=== PATIENT | female | born 1970 | race Caucasian/White ===

== ENCOUNTER → 2017-07-23 | Outpatient (CLI) | payer OTHER ==
--- NOTE | 2017-07-23 10:23 | KCIC ---
DATE: 07/23/2017 EXAM: MAMMO ADRI DIAG BILAT Bilateral digital screening mammography to include digital breast tomosynthesis (3D mammography) HISTORY: 6 month follow-up of nodule in the right breast. COMPARISON: 10/10/2015 and 10/15/2015 This study was interpreted with the benefit of Computerized Aided Detection (CAD). The breast parenchyma shows scattered fibroglandular densities. Breast parenchyma level B. FINDINGS: Digital MLO and CC mammograms of both breasts were obtained. Additional CC digital mammograms of both breasts were obtained. Additionally digital breast tomosynthesis (3D mammography) images of both breasts in the MLO and CC projections were performed. Comparison studies are dated 10/10/2015 and 10/15/2015. The breast parenchyma is composed of scattered fibroglandular densities which can obscure a lesion on mammography (breast density code B). No spiculated mass is seen. No malignant appearing calcification or area of architectural distortion is noted. The small nodular density within the right breast is unchanged from the previous examination. It has a benign appearance. Digital breast tomosynthesis images demonstrate no spiculated mass or malignant appearing calcification. Since the previous examination there has been no significant interval change. IMPRESSION: Stable mammographic appearance of the small benign-appearing nodule within the right breast. I would recharacterize the patient's mammograms as a BI-RADS Category 2 benign findings with a recommendation for routine yearly screening mammography for follow-up. BI-RADS CATEGORY: 2 BENIGN FINDING(S) RECOMMENDED FOLLOW-UP: 12M 12 MONTH FOLLOW-UP PQRS compliance statement: Patient information was entered into a reminder system with a target due date 07/23/2018 for the next mammogram. Mammography is a sensitive method for finding small breast cancers, but it does not detect them all and is not a substitute for careful clinical examination. A negative mammogram does not negate a clinically suspicious finding and should not result in delay in biopsying a clinically suspicious abnormality. "Our facility is accredited by the [employer] Mammography [employer]."
== END | disposition home or self-care (01) ==
LOC: KCIC MAMMO 08:13
PROVIDERS: ATTEND Family Medicine
DX: N63.10 Unspecified lump in the right breast, unspecified quadrant (principal)
CPT/HCPCS: G0204; G0279; 77062; 77066

== ENCOUNTER → 2019-02-21 | Outpatient (CLI) | payer OTHER ==
--- NOTE | 2019-02-21 13:37 | KCIC ---
Bilateral digital screening mammograms with 3-D tomosynthesis: Reason for examination: Routine screening. Comparison is made to previous studies dated 07/23/2017 and 10/10/2015. Bilateral mammograms in CC and oblique projections were obtained with 2-D imaging and 3-D tomosynthesis imaging on a [employer] Inspiration unit and reviewed on the workstation. Interpretation was made with the benefit of CAD. The skin and nipples show no abnormalities. No abnormal axillary lymph nodes are seen. The breast parenchyma is predominantly fatty. (Breast density: Category A.) There are is small parenchymal densities seen in the left breast which are stable. There are no new dominant masses, suspicious calcifications or architectural distortion. Impression: No evidence of malignancy. Recommend routine screening. BI-RAD Category 2: Benign. "Our facility is accredited by the [employer] Mammography Program." This patient's information has been entered into a reminder system for the patient to be notified with the results of her examination and a target date for the next mammogram. Electronically signed by: Krystin Espinoza MD (02/21/2019 1:35 PM) [id number]
== END | disposition home or self-care (01) ==
LOC: KCIC MAMMO 11:50
PROVIDERS: ATTEND Family Medicine
DX: Z12.31 Encounter for screening mammogram for malignant neoplasm of breast (principal); N64.89 Other specified disorders of breast
CPT/HCPCS: 77063; 77067

== ENCOUNTER → 2021-03-13 | Outpatient (CLI) | payer OTHER ==
--- NOTE | 2021-03-13 16:43 | CARD ---
MR#: [id number] Date of Study: 03/13/2021 Ordering Physician: SHOLA LANDRUM, Referring Physician: SHOLA LANDRUM, Tech: Dipti Garcia [facility] APPROVED REPORT EXAM: Two-dimensional and M-mode echocardiogram with Doppler and color Doppler. Other Information Quality : GoodHR: 70bpm INDICATION Peripheral Edema RISK FACTORS Asthma 2D DIMENSIONS RVDd3.3 (2.9-3.5cm)Left Atrium(2D)3.8 (1.6-4.0cm) IVSd0.7 (0.7-1.1cm)Aortic Root(2D)3.0 (2.0-3.7cm) LVDd5.2 (3.9-5.9cm)LVOT Diameter2.0 (1.8-2.4cm) PWd1.0 (0.7-1.1cm)LVDs3.0 (2.5-4.0cm) FS (%) 42.8 %SV94.4 ml LVEF(%)63.5 (>50%) Aortic Valve AoV Peak Yan.190.0cm/sAoV VTI43.0cm AO Peak GR.14.4mmHgLVOT Peak Yan.98.9cm/s LVOT VTI 25.54cmAO Mean GR.8mmHg KAILA (VMAX)1.17pt3SGT (VTI)1.80cm2 AI P 1/2 Rdex107bq Mitral Valve MV E Hvzviuqx55.5cm/sMV DECEL XIDP072ds MV A Olhblkbd90.7cm/sMV WOV24sb E/A Ratio1.2MVA (PHT)2.25cm2 TDI E/Lateral E'4.1E/Medial E'6.4 Pulmonary Valve PV Peak Nxqredpr087.0cm/sPV Peak Grad.6mmHg Tricuspid Valve TR P. [place]ex[place]650qf/sTR Peak Gr.22mmHg Pulmonary Vein S1 Dpxbzlmj92.1cm/sD2 Idukbfqy54.6cm/s PVa [id number] LEFT VENTRICLE The left ventricle is normal size. There is normal left ventricular wall thickness. The left ventricu lar systolic function is normal. The Ejection Fraction is 55%. There is normal LV segmental wall va on. Transmitral Doppler flow pattern is Grade II-pseudonormal filling dynamics. RIGHT VENTRICLE The right ventricle is borderline dilated. There is normal right ventricular wall thickness. The righ t ventricular systolic function is normal. ATRIA The left atrium size is normal. The right atrium size is normal. The interatrial septum is intact wit h no evidence for an atrial septal defect or patent foramen ovale as noted on 2-D or Doppler imaging. AORTIC VALVE The aortic valve is mildly thickened but opens well. Doppler and Color Flow revealed mild aortic regu rgitation. There is no significant aortic valvular stenosis. Calculated aortic valve area is 1.80 cm2 with maximum pressure gradient of 17 mmHg and mean pressure gradient of 10 mmHg. MITRAL VALVE The mitral valve is normal in structure and function. There is no evidence of mitral valve prolapse. There is no mitral valve stenosis. Doppler and Color-flow revealed trace mitral regurgitation. TRICUSPID VALVE The tricuspid valve is normal in structure and function. Doppler and Color Flow revealed trace tricus pid regurgitation with an estimated PAP of 30 mmHg. There is no tricuspid valve stenosis. PULMONIC VALVE The pulmonic valve is not well visualized. Doppler and Color Flow revealed trace to mild pulmonic geoff vular regurgitation. GREAT VESSELS The aortic root is normal in size. The IVC is normal in size and collapses >50% with inspiration. PERICARDIAL EFFUSION There is no evidence of significant pericardial effusion. Critical Notification Critical Value: No <Conclusion> The left ventricular systolic function is normal. The Ejection Fraction is 55%. There is normal LV segmental wall motion. Transmitral Doppler flow pattern is Grade II-pseudonormal filling dynamics. Mild aortic regurgitation. Trace mitral regurgitation. Trace tricuspid regurgitation with an estimated PAP of 30 mmHg. There is no evidence of significant pericardial effusion. Signed by : Shola Landrum, Electronically Approved : 03/13/2021 16:42:55
--- NOTE | 2021-03-13 17:13 | RAD ---
MR#: [id number] Date of Study: 03/13/2021 Ordering Physician: SHOLA LEMUS, Referring Physician: SHOLA LEMUS, Tech: Pastor Marrero MBA, RDMS, RVT, RDCS, RTR APPROVED REPORT Patient Location : OUT-PATIENT Indications Lower Extremity Edema : Bilateral Greater Saphenous Veins (GSV) Significant venous relux noted in the LEFT GSV at the following levels : Superficial Femoral Junction , Proximal Thigh Lesser Saphenous Veins (LSV) Significant venous reflux is noted in the Left LSV. Perforators Thigh Perforators Calf Perforators Left: cm up from medial heel 6,30cm back from the anterior border of tibia 3 diameter 2.5/2.6mm. Findings Grayscale images of the bilateral saphenofemoral junctions are grossly unremarkable. The right great saphenous vein measures 4.7 mm and does not show any evidence of reflux. The right l celio saphenous vein did not show any evidence of reflux The left great saphenous vein measures approximately 4.8 mm and has a maximum reflux time of 3 second s. The left lesser saphenous vein measures 3 mm and has a maximum reflux time of 2 seconds. 2 perforators are noted on the left side had approximately 6 cm up in 30 cm up and 3 cm back from the level of the ankle with approximate measurements of 2.5 mm in diameter. Critical Notification Critical Value: No <Conclusion> 1. Positive for reflux in the left greater and lesser saphenous veins Signed by : Andrea Zapien, Electronically Approved : 03/13/2021 17:13:25
== END ==
LOC: US 12:54
PROVIDERS: ATTEND Internal Medicine Cardiovascular Disease
DX: I08.8 Other rheumatic multiple valve diseases (principal); R60.0 Localized edema
CPT/HCPCS: 93306; 93970